=== PATIENT | female | born 1950 | race Caucasian/White ===

== ENCOUNTER 2017-04-27 10:55 | Day surgery (SDC) | payer OTHER ==
[~2017-04-27] VITALS: Ht 152.4 cm; Wt 58.4 kg
[~2017-04-27 10:55] MED LIST: CALC1TAB98 PO; OMEP20CA16 PO
[2017-04-27 11:40] VITALS: Ht 152.4 cm; Wt 58.4 kg
[2017-04-27] MEDS ORDERED: RANITIDINE PO (11:42)
[2017-04-27] MEDS ORDERED: PROPOFOL 20 ML ONE (11:54)
[2017-04-27 12:01] VITALS: BP 137/67; PULSE 63; RESP 18
--- NOTE | 2017-04-27 12:30 | OPPN ---
Date/Time of Note Date/Time of Note DATE: 04/27/17 TIME: 12:27 Proc Note GI Procedure Date 04/27/17 Indication: diagnostic Pre-procedure Diagnosis r/o gerd pud Post-procedure Diagnosis gerd gr2 erosive gastritis bx done Procedure Performed: Endoscopy Surgeon see signature line General Practice none Anesthesia Type: MAC Tourniquet Time none EBL none Transfusion required none Biopsy 1: gastric vcand esophageal bx Grafts/Implants none Tubes/Drains none Complication(s) none Disposition: home Procedure Description egd done under mac gerd 2 erosive gastritis bx done ALBERTO DEL RIO MD Apr 27, 2017 12:30
[2017-04-27 12:50] VITALS: BP 128/60; RESP 14
--- NOTE | 2017-04-28 06:43 | GILP ---
DATE OF PROCEDURE: PROCEDURE: Esophagogastroduodenoscopy. PREOPERATIVE DIAGNOSES: Patient presenting with history of abdominal pain and chronic heartburn, ru le out peptic ulcer disease, esophagitis. POSTOPERATIVE DIAGNOSES: 1. Grade II distal erosive esophagitis. 2. Whitish patches in the esophagus, rule out Maryann. 3. Multiple erosions with coffee-ground material noted in the antrum and mid body of the stomach. Biopsies were done as follows. DESCRIPTION OF PROCEDURE: After the informed written consent was obtained, the patient was asked to lie on the left lateral side. Intravenous anesthesia was given by anesthesiologist, Dr. Veliz. Whe n the patient became somnolent, the Olympus video upper endoscope was introduced into the oropharynx , then into the esophagus. Whitish patches noted scattered along the mucosal surface, but they were scantily noted. Biopsies were done to rule out Maryann of the esophagus. Distal esophagus noted e vidence of linear erosions measuring at least for about 2 cm in length from the GE junction. Multip le biopsies were obtained to rule out Turpin's esophagus. Scope at this time was advanced into the stomach. Multiple erosions were noted with specks of coffee-ground material scattered along the mu cosal surface. Biopsy was done from the antrum, the lesser curvature and the fundus to rule out H. pylori infection. Mucosa of the duodenum showed minimal duodenitis in the bulb and second and third part of the duodenum appeared normal. Endoscope at this time was withdrawn and the procedure was t erminated. PLAN: Recommend change ranitidine to Protonix 40 mg q.a.m. and wait for the pathology report. Dictated By: ALBERTO ENRIQUEZ/VICTOR HUGO Conf#: [id number] DID#: [id number] CC: Dr. Weaver in [place];*EndCC*
== END 2017-04-27 15:27 | disposition home or self-care (01) ==
LOC: GIL 10:55
PROVIDERS: ATTEND Internal Medicine Gastroenterology
DX: K29.50 Unspecified chronic gastritis without bleeding (principal); K20.9 Esophagitis, unspecified
CPT/HCPCS: 88305; 88312; 88313